=== PATIENT | male | born 1950 | race Caucasian/White ===

== ENCOUNTER → 2024-03-19 | Outpatient (CLI) | payer MEDICARE | END | disposition home or self-care (01) | LOC: RESCLI 11:02 | PROVIDERS: ATTEND Internal Medicine | DX: I48.20 Chronic atrial fibrillation, unspecified (principal); G47.33 Obstructive sleep apnea (adult) (pediatric); G62.9 Polyneuropathy, unspecified; E78.5 Hyperlipidemia, unspecified; E61.1 Iron deficiency; I10 Essential (primary) hypertension; G25.81 Restless legs syndrome; L30.9 Dermatitis, unspecified; K21.9 Gastro-esophageal reflux disease without esophagitis; E63.9 Nutritional deficiency, unspecified; Z79.899 Other long term (current) drug therapy; Z88.8 Allergy status to other drugs, medicaments and biological substances ==